=== PATIENT | female | born 1955 | race American Indian/Alaskan Native ===

== ENCOUNTER 2021-11-06 07:37 | Outpatient (CLI) | payer MEDICARE ==
--- NOTE | 2021-11-06 08:31 | Cat Scan Report ---
CT ABDOMEN AND PELVIS WITHOUT CONTRAST HISTORY: Abdominal pain. COMPARISON: 12/03/2016 TECHNIQUE: CT images of the abdomen and pelvis were obtained without administration of intravenous co ntrast. All CT scans at this location are performed using CT dose reduction for ALARA by means of au tomated exposure control. FINDINGS: Lungs/bones: Lung bases are clear Abdomen/pelvis: Within limits of a noncontrast exam the liver, spleen, adrenal glands, pancreas, gal lbladder appear normal. Postsurgical change in the upper GI tract liver is enlarged. Hiatal hernia is noted. No definite renal stones are seen. The appendix appears normal. There is colonic diverticulos is. There may be some mild thickening of the distal sigmoid colon and rectum, nonspecific. Degenerati ve changes seen throughout spine IMPRESSION: 1. Postsurgical change and upper GI tract. 2. Diverticulosis. No focal inflammatory changes seen. There is some questionable mild thickening of the rectum however nonspecific. Clinical correlation. 2. No definite renal or ureteral stones. Degenerative changes seen throughout spine. Signer Name: Ray Patino MD Signed: 11/06/2021 8:26 AM Workstation Name: [id number]
== END 2021-11-06 07:38 | disposition home or self-care (01) ==
LOC: CT 07:37
PROVIDERS: ATTEND Urology
DX: K44.9 Diaphragmatic hernia without obstruction or gangrene (principal); N39.0 Urinary tract infection, site not specified; K57.30 Diverticulosis of large intestine without perforation or abscess without bleeding; M47.816 Spondylosis without myelopathy or radiculopathy, lumbar region
CPT/HCPCS: 74176